=== PATIENT | male | born 1985 | race Caucasian/White ===

== ENCOUNTER 2016-08-21 23:57 | Emergency (ER) | payer OTHER ==
[~2016-08-21] VITALS: Wt 80.0 kg
[2016-08-22] MEDS ORDERED: KETOROLAC 30 MG INJ IM STA (02:17)
[2016-08-22] MEDS ORDERED: OXYCODONE/ACETAMINOPHEN (5/325) TAB PO ONE (02:30)
--- NOTE | 2016-08-22 03:02 | RADRPT ---
PROCEDURE: CT ABDOMEN/PELVIS WITHOUT CONTRAST CLINICAL INDICATION: 31-year-old male with abdominal pain. TECHNIQUE: The study was performed utilizing a [employer] VCT 64-slice CT scanner. Direct axia l sections were obtained through the abdomen and pelvis without the use of intravenous contrast mate rial. Sagittal and coronal reformations were obtained. Automated exposure control and iterative katelyn nstruction techniques were utilized for this examination. [facility]D/vol = 16.7 mGy; Total Exam DLP = 1022.7 mGy-cm. COMPARISON: None. FINDINGS: The lung bases are unremarkable. There is no evidence for significant pleural effusion. The liver has a normal size and contour. There is diffuse decreased density throughout the liver consistent w ith fatty infiltration without focal areas of abnormal density. No intrahepatic nor extrahepatic mahnaz iary ductal dilatation is seen. The gallbladder demonstrates no wall thickening nor pericholecystic fluid. No biliary stones are evident. The pancreas is without areas of abnormal attenuation. The sp rhina is identified and has a normal size without abnormal density. The adrenal glands are unremarkab le. There is [id number] right-sided hydroureteronephrosis with an obstructing proximal right u reteral calculus measuring approximately 14 x 7 x 8 mm. There is perinephric infiltration. There i s a punctate nonobstructing right upper pole renal prema calculus. The left kidney is without abnor mal density, calculi or obstruction. The urinary bladder contains a small volume of urine. There is no evidence for bowel obstruction. The appendix is visualized and is without abnormal thickening or surrounding inflammatory reaction. There is no significant free fluid. There is minimal right ingu inal hernia containing fat. The aortoiliac vessels are without aneurysmal dilatation. The osseous s tructures are intact. IMPRESSION: 1. Diffuse fatty infiltration of the liver. 2. [id number]-[id number] right-sided hydroureteronephrosis with an obstructing proximal right ureteral 1 4 x 7 x 8 mm calculus. 3. Punctate nonobstructing right upper pole renal calculus. 4. No CT evidence for appendicitis. 5. Minimal right inguinal hernia containing fat. .Farhad Sparks MD, Date Time Electronically viewed and signed by .Farhad Sparks MD, MD on 08/22/2016 03:01 .Daquan/
[2016-08-22 03:06] LABS: ADD UMIC YES; URINE BILIRUBIN (Dip) NEGATIVE (NEGATIVE); URINE BLOOD (Dip) 3+ (NEGATIVE); URINE COLOR LT. YELLOW (YELLOW); URINE GLUCOSE (Dip) NEGATIVE (NEGATIVE); URINE KETONES (Dip) NEGATIVE (NEGATIVE); URINE LEUKOCYTE ESTERASE (Dip) NEGATIVE (NEGATIVE); URINE NITRITE (Dip) NEGATIVE (NEGATIVE); URINE TOTAL PROTEIN (Dip) NEGATIVE (NEGATIVE); URINE UROBILINOGEN (Dip) 0.2 E.U./dL (0.1-1.0)
[2016-08-22 03:13] LABS: SQUAMOUS EPITHELIAL CELL,UR FEW; URINE RBCS >50 /HPF (0)
[2016-08-22] MEDS ORDERED: TAMS-14 PO (03:13)
[2016-08-22] MEDS ORDERED: OXYC-279 PO (03:13)
[2016-08-22] MEDS ORDERED: CIPR500T4 PO (03:13)
--- NOTE | 2016-08-22 03:18 | ERD ---
ER Documentation Chief Complaint Date/Time DATE: 08/22/16 TIME: 03:15 Chief Complaint rt lower back pain, rt flank pain today. HPI 31-year-old man complains of right flank pain radiating to the groin 1 day associated with some nausea. He states he has had similar episodes in the past which have resolved spontaneously. He denies vomiting or diarrhea, no chest pain or shortness of breath, no penile discharge, no dysuria or hematuria. Patient denies recent antibiotic use. ROS All systems reviewed and are negative except as per history of present illness. Medications Home Meds Active Scripts Tamsulosin Hcl* (Flomax*) 0.4 Mg Cap.er.24h, 0.4 MG PO DAILY for 5 Days, #5 CAP Prov:JOANNE JOSHUA MD 08/22/16 Ciprofloxacin Hcl* (Ciprofloxacin Hcl*) 500 Mg Tablet, 500 MG PO BID for 5 Days , TAB Prov:JOANNE JOSHUA MD 08/22/16 Oxycodone HCl/Acetaminophen (Percocet 5-325 mg Tablet) 1 Each Tablet, 1 EACH PO TID for PAIN, #15 TAB Prov:JOANNE JOSHUA MD 08/22/16 PMhx/Soc None FmHx Family History: No diabetes Physical Exam Vitals Vital Signs Date Time Temp Pulse Resp B/P Pulse Ox O2 Delivery O2 Flow Rate FiO2 08/22/16 03:26 73 18 132/76 97 Room Air 08/22/16 00:22 98.4 104 18 165/77 100 Physical Exam GENERAL: Well-developed, well-nourished, well-hydrated, in no apparent distress , looks nontoxic in appearance HEENT: Moist mucous membranes, pink conjunctiva, no cervical spine tenderness or step-off deformities, no goiter, no jaundice or icterus, extraocular movements intact without pain. No submandibular induration, and no pharyngeal erythema NEURO: Alert and oriented 3, cranial nerves II through XII intact bilaterally, pupils equal round reactive to light, no focal deficits or facial asymmetry, sensation intact distally Strength 5/5 in upper and lower extremities bilaterally CARDIAC: Regular rate and rhythm, no murmurs rubs or gallops LUNGS: Clear bilaterally no wheezing crackles or stridor ABDOMEN: Soft nontender, no guarding, no rigidity, no rebound, no psoas sign no obturator sign. Normoactive bowel sounds SKIN: Warm and dry to touch, no abrasions, contusions, or hematomas, no lacerations, no ecchymosis, no target lesions, and without ulcers EXTREMITIES: No clubbing cyanosis or edema, calves are bilaterally symmetrical, no Homans sign, no popliteal cord sign. Distal pulses equal and bilateral PSYCH: Normal affect without agitation or irritability Results 24 hrs Laboratory Tests Test 08/22/16 02:30 Urine Bilirubin NEGATIVE Urine Clarity CLEAR Urine Color LT. YELLOW Urine Glucose NEGATIVE% Urine Hemoglobin 3+ Urine Ketones NEGATIVE Urine Leukocyte Esterase NEGATIVE Urine Microscopic RBC >50/HPF Urine Microscopic WBC 0-2/HPF Urine Nitrite NEGATIVE Urine Specific [place] 1.020 Urine Squamous Epithelial Cells FEW Urine Total Protein NEGATIVE Urine Urobilinogen 0.2 E.U./dL Urine pH 7.0 Current Medications Medications (Trade) Dose Ordered Sig/Gia Route PRN Reason Start Time Stop Time Status Last Admin Dose Admin Ketorolac Tromethamine (Toradol) 30 mg ONCE STAT IM 08/22/16 02:17 08/22/16 02:18 DC 08/22/16 02:41 Oxycodone/ Acetaminophen (Percocet (5/ 325)) 1 tab ONCE ONCE PO 08/22/16 02:30 08/22/16 02:31 DC 08/22/16 03:22 Procedures/MDM I administered Toradol 30 mg intramuscular injection and Percocet 1 tablet p.o. with good pain control. Urine analysis was positive for 3+ blood. CT scan of the abdomen and pelvis was performed revealing right-sided hydro- ureteronephrosis and a large proximal right ureter stone, there was no perinephritic fat stranding or inflammatory changes. Please refer to radiologist dictation for full report. Patient's pain is been completely controlled here in the emergency department and he is able to urinate without difficulty. I do not suspect renal failure and the patient can be managed as an outpatient with analgesics and antibiotics. Both verbal and written instructions were provided to the patient. Differential diagnoses considered, included but not limited to renal failure and insufficiency, urethritis, aortic dissection, abdominal aortic aneurysm, sepsis, stroke, meningitis, encephalitis, pneumonia, appendicitis, cholecystitis , bowel obstruction, pyelonephritis, nephrolithiasis, cystitis, as well as metabolic, hematologic, and electrolyte abnormalities. As well as abscess, cellulitis, fractures, and dislocations. Patient feels much better at this time, and vital signs are normal, symptoms have improved. I did give strict instructions to return to the ED if symptoms continue or worsen, patient will otherwise follow-up with primary care physician. Patient understood instructions and agreed to plan. Departure Diagnosis: Primary Impression: Ureteral stone with hydronephrosis Additional Impression: Nephrolithiasis Condition: Good Patient Instructions: Hydronephrosis Adult, Kidney Stone W/ Colic JOANNE JOSHUA MD Aug 22, 2016 03:17
[2016-08-22 03:26] VITALS: BP 132/76; PULSE 73; RESP 18
== END 2016-08-22 03:26 | disposition home or self-care (01) ==
LOC: E/R 23:57
DX: N13.2 Hydronephrosis with renal and ureteral calculous obstruction (principal); R11.0 Nausea
CPT/HCPCS: 74176; 81001; 96372; 99285; J1885; 81003

== ENCOUNTER 2017-09-05 20:41 | Emergency (ER) | END 2017-09-05 23:37 | disposition left against medical advice (07) ==